=== PATIENT | female | born 1950 | race Caucasian/White ===

== ENCOUNTER 2018-09-09 15:17 | Outpatient (CLI) | payer MEDICARE, OTHER, SELFPAY ==
--- NOTE | 2018-09-09 15:21 | DI.MAMMO_ITS ---
SYMPTOMS/DIAGNOSIS: SCREENING BILATERAL SCREENING MAMMOGRAM: Mammograms were interpreted according to the usual protocol including computer analysis with CAD system, tomosynthesis and C view imaging. Comparison is made with exams from 2010 through 2016. The breasts are composed of heterogeneously dense fibroglandular tissue, breast density category C. No suspicious masses or suspicious microcalcifications are seen. There has been no significant change. IMPRESSION: Category 1C, negative mammogram. Yearly screening mammography is recommended. [facility] ASSESSMENT OF FINDINGS: Negative. Category 1. Patient will receive a letter notifying them of these results. Bi-RADS category C. The breasts are heterogeneously dense, which may obscure small masses.
== END 2018-09-09 15:37 ==
PROVIDERS: PCP Family Medicine; Visit Provider Family Medicine
DX: Z12.31 Encounter for screening mammogram for malignant neoplasm of breast (principal)
CPT/HCPCS: 77063; 77067

== ENCOUNTER 2019-09-13 03:06 | Outpatient (CLI) | payer MEDICARE, OTHER, SELFPAY ==
[2019-09-13 10:40] LABS: HCT 40.9 % (36.0-46.0); Mean Corp. HGB Concentration 31.8 g/dL (32.0-36.0); Mean Corpuscular Hemoglobin 30.1 pg (27.0-33.0); Mean Corpuscular Volume 94.7 fL (80-95); Mean Platelet Volume 11.1 fL (8.0-11.0); Platelet Count 219 x1000/uL (130-400); RBC 4.32 m/cumm (4.00-5.20); RBC Distribution Width 13.4 % (11.7-14.6); White Blood Cell Count 4.77 k/cumm (4.4-10.8)
[2019-09-13 10:57] LABS: Calculated LDL 246 mg/dL; Cholesterol 337 mg/dL (<200); Ferritin 395 ng/mL (8-252); HDL Cholesterol 69 mg/dL (40-60); Triglyceride 114 mg/dL (<150)
== END 2019-09-13 03:26 ==
PROVIDERS: PCP Family Medicine; Visit Provider Family Medicine
DX: E11.9 Type 2 diabetes mellitus without complications (principal); E78.5 Hyperlipidemia, unspecified; D12.6 Benign neoplasm of colon, unspecified; J45.909 Unspecified asthma, uncomplicated; Z83.49 Family history of other endocrine, nutritional and metabolic diseases
CPT/HCPCS: 36415; 80061; 85027; 82728; 83036

== ENCOUNTER 2019-09-20 08:08 | Outpatient (CLI) | payer MEDICARE, SELFPAY ==
[2019-09-23 22:59] LABS: Result Summary NEGATIVE; Specimen WB Whole Blood
== END 2019-09-20 08:28 ==
PROVIDERS: PCP Family Medicine; Visit Provider Family Medicine
DX: D75.1 Secondary polycythemia (principal); R79.0 Abnormal level of blood mineral; Z83.49 Family history of other endocrine, nutritional and metabolic diseases; R79.89 Other specified abnormal findings of blood chemistry
CPT/HCPCS: 36415; 81256

== ENCOUNTER 2019-10-18 01:24 | Outpatient (CLI) | payer MEDICARE, SELFPAY ==
--- NOTE | 2019-10-18 10:10 | DI.MAMMO_ITS ---
EXAM: MAMMO SCREENING CLINICAL HISTORY: SCREENING Z12.39 TECHNIQUE: Mammograms were interpreted according to the usual protocol including computer analysis w [employer] CAD system, tomosynthesis and C-view imaging. COMPARISON: 2009 through 2018 FINDINGS: The breasts are composed of heterogeneously dense fibroglandular densities, Breast Density category C . No suspicious masses or suspicious microcalcifications are seen. Benign calcifications are noted brooks aterally. No skin thickening or abnormal axillary lymph nodes are seen. There has been no significant change from prior exams. IMPRESSION: BI-RADS Cat 2 - Benign Findings. Yearly screening mammography is recommended. BREAST DENSITY: The mammogram demonstrates the patient's breast tissue is dense. Dense breast tissue is very common and is not abnormal but dense breast tissue can make it harder to find cancer on a ma mmogram. Also, dense breast tissue may increase breast cancer risk. This information about the result of the mammogram report was provided to the patient to raise their awareness. Use this report when y ou speak with the patient about their risks for breast cancer, which includes their family history. A t that time, you may recommend additional screening tests (Ultrasound or MRI) as they might be useful based on their risk. A negative radiographic report should not delay biopsy if a dominant or clinically suspicious mass is present. Up to ten percent of cancers are not identified on mammography. A negative report may reinforce clinical impression. Adenosis and dense breasts may obscure an underlying neoplasm. False positive reports average 6 to 10%.
== END 2019-10-18 01:44 ==
PROVIDERS: PCP Family Medicine; Visit Provider Family Medicine
DX: Z12.31 Encounter for screening mammogram for malignant neoplasm of breast (principal)
CPT/HCPCS: 77063; 77067

== ENCOUNTER 2019-10-18 12:22 | Outpatient (REF) | payer MEDICARE, SELFPAY ==
--- NOTE | 2019-10-18 11:37 | SKI_PTH ---
PATIENT: Silvia Nuñez LOC: [facility] U#:[id number] AGE/SX: 69/F ROOM: RE10/18/[address]: Bebeto Jorge DO : 1950 BED: DIS: 10/18/2019 SPEC #: [id number] RECD: 10/18/19 18:07 STATUS: MIKE REKaren #: [id number] LATHA: 10/18/19 11:[address]: Bebeto Jorge DEPT: Surgical Specimen RECD BY: Alma Ceja ENTERED: 10/18/19 18:07 SP TYPE: LEONARDA CISNEROS DR: Zoila Cao MD, DC Tissues: 1 - SKIN BIOPSY(SHAVE/PUNCH) Procedures: SKIN LEVEL 4 Comments: [id number]
== END 2019-10-18 12:42 ==
LOC: LBN 12:22
PROVIDERS: PCP Family Medicine; Visit Provider Otolaryngology Otolaryngology/Facial Plastic Surgery
DX: C44.311 Basal cell carcinoma of skin of nose (principal)
CPT/HCPCS: 88305

== ENCOUNTER → 2019-11-12 09:57 | Outpatient (BNVA) | payer MEDICARE, OTHER, SELFPAY | PROVIDERS: PCP Family Medicine; Referring Provider Family Medicine; Visit Provider Physical Therapy Assistant | DX: Z12.11 Encounter for screening for malignant neoplasm of colon (principal); Z86.010 Personal history of colon polyps ==

== ENCOUNTER 2019-11-22 10:21 | Day surgery (SDC) | payer MEDICARE, SELFPAY ==
--- NOTE | 2019-11-22 07:13 | W.COLOREPORT ---
Date of service: 11/22/19 Time of Service: 11:43 Colonoscopy Report Date of procedure: 11/22/19 Pre-op diagnosis general: Hx of colon polyps Post-op diagnosis procedure note: other (Diverticulosis, polyps and internal hemorrhoids) Procedure: Colonoscopy with polypectomy Surgeon: Shaylee Diaz Anesthesia proc note operative: other (General/ ASA 2 /Yue Ureña, ZE) Estimated blood loss (mL): 3 Pathology: other (Transverse polyp and sigmoid polyp) Complications: None Disposition: same day Indications: 69 y/o female with history of diverticulosis and asthma presents for colonoscopy screening pre-op. Her last screening was in 2015, which was remarkable for tubular adenomatous polyps. She reports family history of colon cancer in her maternal grandfather and paternal grandmother. She denies any changes in bowel habits including bloody or black tarry stools, diarrhea or constipation. Of note she reports intermittent LLQ discomfort. She relates this to her diverticulosis and has been increasing her daily fiber intake. Risks, benefits and complications have been reviewed. Complications include but are not limited to bleeding, pain, perforation, missed small lesion/polyp, sore throat, aspiration and adverse reaction to the medications. Questions were entertained and answered to their satisfaction and they wished to proceed. No guarantees were given or implied. Prep: Miralax/Dulcolax Procedure Start Time: 11:43 Procedure End Time: 12:07 Retraction Time: 15 minutes Findings: 2 small polyps Diverticulosis Grade 1 internal hemorrhoids Procedure Description: After informed consent was obtained the patient was taken to the procedure room and placed in a left decubitous position. Monitors were applied and a time out was done. The patients name, date of , procedure, allergies to medications and metal in their body was reviewed. The patient was then sedated. Once sedated and comfortable a rectal exam was done. External exam was normal. Internal exam revealed a normal sphincter tone and no palpable masses. The scope was then introduced and retro-flexed. No polyps and masses were identified on retro-flexion. There were Grade 1 internal hemorrhoids noted. The scope was then advanced to the cecum without difficulty. The ileocecal valve and appendiceal orifice were identified. The prep was adequate. The scope was then slowly retracted over 15 minutes back into the rectum. Polyps were removed with cold forceps in the transverse colon and sigmoid colon. There was moderate diverticulosis in the sigmoid colon.The scope was removed and the patient was woken up and taken back to Same day surgery in stable condition. The patient tolerated the procedure well and there were no immediate complications. Follow up: The patient should follow up in 5 years unless they develop changes in bowel habits or other new gastrointestinal complaints.
--- NOTE | 2019-11-22 07:14 | W.PM.DSUDISC ---
Discharge Plan Disposition Patient Disposition: HOME Condition: Good Discharge Details Reason For Visit: Hx of colon polyps Attending Provider: Shaylee Diaz Primary Care Provider: Zoila Cao Home Meds and New Rx's Prescriptions: Continued calcium citrate-vitamin D3 200 mg calcium -250 unit tablet 1 tab PO DAILY RF: 0 multivitamin [Daily Vitamin] 1 EACH tablet 1 tab PO DAILY RF: 0 mupirocin [Bactroban] 22 GM ointment 2 - 4 gm Topical BID Qty: 22 RF: 1 ascorbic acid (vitamin C) [Vitamin C] 500 MG tablet 500 mg PO DAILY RF: 0 magnesium citrate 100 MG tablet 0.5 tab PO DAILY RF: 0 cholecalciferol (vitamin D3) 1,000 unit capsule 1,000 unit PO DAILY RF: 0 fluticasone propion-salmeterol [Advair Diskus] 100-50 mcg/dose blister with device 1 puff Inhalation BID Qty: 3 RF: 11 Discontinued polyethylene glycol 3350 17 gram/dose powder 238 g PO ONCE Qty: 238 RF: 0 bisacodyl [Dulcolax (bisacodyl)] 5 mg tablet,delayed release (DR/EC) 5 mg PO ONCE Qty: 4 RF: 0 Discharge Instructions Instructions: Diverticulosis (DC), Hemorrhoids (DC) Additional Instructions: Findings: 2 small polyps diverticulosis Internal hemorrhoids Follow up: 5 years Please call if you develop: fevers >101.5 Nausea or Vomiting Abdominal pain that is not transient DAY SURGERY UNIT POST ENDOSCOPY INSTRUCTIONS 1. Because there will be medication in your system for the next 24 hours, you may feel a little sleepy. Your coordination will be affected. Therefore: a. Do not drive or operate dangerous equipment for 24 hours. b. Do not drink alcohol beverages for 24 hours (not even beer). c. Plan to go home and rest for the day. 2. Generally there are no restrictions on your activity after a day or so has gone by, but you may feel a bit fatigued for a few days. 3 After you arrive home you may have a light meal and return to a normal diet as you can tolerate it without feeling sick to your stomach. 4. After surgery, you may feel pain or discomfort. This should be only transient, but if it persists please contact your doctor. 5. If there are any questions regarding the findings of your procedure, please feel free to contact your doctor. 6. If you are unable to contact your doctor with a problem, contact the hospital at [phone]. 7. Continue all your regular medications unless directed otherwise. I understand the above instructions and have no questions. Signature of Patient or Responsible Adult Escort Date/Time Name of Responsible Adult Escort Signature of Nurse Date/Time Activity:: Activity as Tolerated Diet:: high fiber diet Discharge Orders Discharge Orders: Discharge Order (Routine); Ordered 11/22/19 Ordered By: Shaylee Diaz
[2019-11-22 10:40] VITALS: BP 113/73; PULSE 56; RESP 16; TEMP 36.5; O2SAT 98
[2019-11-22] MEDS: Lactated Ringers 1,000 ML 80 ML IV (11:10)
--- NOTE | 2019-11-22 11:59 | BOWEL_PTH ---
PATIENT: Silvia Nuñez LOC: [facility] U#:[id number] AGE/SX: 69/F ROOM: RE11/22/[address]: Shaylee Diaz MD : 1950 BED: DIS: 11/22/2019 SPEC #: [id number] RECD: 11/22/19 13:08 STATUS: MIKE RE #: [id number] LATHA: 11/22/19 11:[address]: Shaylee Diaz DEPT: Surgical Specimen RECD BY: Alma Ceja ENTERED: 11/22/19 13:09 SP TYPE: Bowel OTHR DR: Zoila Cao MD, DC Tissues: 1 - BIOPSY BOWEL 2 - BIOPSY BOWEL Procedures: GROSS AND MICRO LEVEL 4 Comments: [id number]
[2019-11-22 12:41] VITALS: BP 122/71; PULSE 57; RESP 16; TEMP 36.3; O2SAT 99
== END 2019-11-22 13:11 | disposition home or self-care (01) ==
LOC: SUR 10:21
PROVIDERS: PCP Family Medicine; Visit Provider Surgery
PROC: 0DJD8ZZ Inspection of Lower Intestinal Tract, Via Natural or Artificial Opening Endoscopic (ICD-10-PCS; CPT 45378; principal; 2019-11-22 12:30)
DX: Z12.11 Encounter for screening for malignant neoplasm of colon (principal); K63.5 Polyp of colon; K57.30 Diverticulosis of large intestine without perforation or abscess without bleeding; K64.0 First degree hemorrhoids; Z86.010 Personal history of colon polyps; Z80.0 Family history of malignant neoplasm of digestive organs
CPT/HCPCS: 45380; 88305; J2001; J2704

== ENCOUNTER 2020-02-04 08:56 | Outpatient (CLI) | payer MEDICARE, SELFPAY ==
[2020-02-05 23:42] LABS: COVID-19 RT-PCR Result NEGATIVE (Negative)
== END 2020-02-04 09:16 ==
PROVIDERS: PCP Family Medicine; Visit Provider Otolaryngology Otolaryngology/Facial Plastic Surgery
DX: Z03.818 Encounter for observation for suspected exposure to other biological agents ruled out (principal)
CPT/HCPCS: U0003

== ENCOUNTER 2020-02-07 06:11 | Day surgery (SDC) | payer MEDICARE, SELFPAY ==
[2020-02-07 06:06] VITALS: BP 90/64; PULSE 55; RESP 16; TEMP 36.8; O2SAT 98
[2020-02-07] MEDS: Lactated Ringers 1,000 ML 80 ML IV (06:51)
--- NOTE | 2020-02-07 07:35 | W.PM.DSUDISC ---
Discharge Plan Disposition Patient Disposition: HOME Condition: Stable Discharge Details Reason For Visit: BCC nose OR Attending Provider: Bebeto Jorge Primary Care Provider: Zoila Cao Home Meds and New Rx's Prescriptions: No Action calcium citrate-vitamin D3 200 mg calcium -250 unit tablet 1 tab PO DAILY RF: 0 multivitamin [Daily Vitamin] 1 EACH tablet 1 tab PO DAILY RF: 0 ascorbic acid (vitamin C) [Vitamin C] 500 MG tablet 500 mg PO DAILY RF: 0 magnesium citrate 100 MG tablet 0.5 tab PO DAILY RF: 0 cholecalciferol (vitamin D3) 1,000 unit capsule 1,000 unit PO DAILY RF: 0 fluticasone propion-salmeterol [Advair Diskus] 100-50 mcg/dose blister with device 1 puff Inhalation BID Qty: 3 RF: 11 montelukast 10 mg tablet 10 mg PO DAILY RF: 0 Discharge Instructions Additional Instructions: see sheet Activity:: Activity as Tolerated Remove Dressings/Wound Care:: 24 hours Shower/Bathe:: 24 hours Diet:: As Tolerated DS: Diagnosis Discharge Diagnosis (1) Skin cancer, basal cell: Status: Acute
--- NOTE | 2020-02-07 07:40 | ROE_ITS ---
Operative Note Operative Note DATE OF PROCEDURE: 02/07/20 PRE-OP DIAGNOSIS: BCC nose POST-OP DIAGNOSIS: same PROCEDURE: excisoni, frozen section and FTSG SURGEON: Bebeto Jorge ANESTHESIA: MAC PATHOLOGY: other (frozen, neg. margins) COMPLICATIONS: None Patient was transported to: PACU Patient's condition: stable Findings: frozen neg. after re- resection, initial + was 3:00 to 9:00 Procedure Description: Patient was brought back to the operative suite in stable condition, placed supine on operating table and given IV sedation. Timeout was taken to confirm preparation procedure. Patient was localized with 11 cc of 1% lidocaine with 1000 epinephrine into the right neck and right nasal sidewall. Patient was prepped and draped in normal fashion. 15 blade scalpel was used to excise the basal cell carcinoma of the right nasal sidewall, colored sutures were tagged for pathological analysis. We fashioned a full-thickness skin graft from the right neck. The right neck was incised with a 15 blade scalpel full- thickness skin was removed measuring 3.4 cm. Hemostasis controlled. Double layer closure performed with 4-0 Monocryl followed by 4 running nylon. The size of the primary nasal tumor was 1.2 cm after inital excision, re- resection of 3:00 to 9:00 due to positive margins enlarged defect to 1.9c cm. Final frozen section was performed, margins were negative. Patient was stable to PACU, there was no complications, antibiotic prescription provided as an outpatient, pressure dressing applied with sterile cotton ball and 3-0 silk suture. We will follow-up Friday of Friday for removal established patient
--- NOTE | 2020-02-07 08:09 | SKI_PTH ---
PATIENT: Silvia Nuñez LOC: [facility] U#:[id number] AGE/SX: 70/F ROOM: RE02/07/[address]: Bebeto Jorge DO : 1950 BED: DIS: 02/07/2020 SPEC #: [id number] RECD: 02/07/20 12:21 STATUS: MIKE REKaren #: [id number] LATHA: 02/07/20 08:[address]: Bebeto Jorge DEPT: Surgical Specimen RECD BY: Alma Ceja ENTERED: 02/07/20 12:22 SP TYPE: LEONARDA CISNEROS DR: Zoila Cao MD, DC Tissues: 1 - SKIN BIOPSY(SHAVE/PUNCH) 2 - SKIN BIOPSY(SHAVE/PUNCH) 3 - FROZEN SECTION EXAM Procedures: FROZEN SECTION EXTRA SKIN LEVEL 4 FROZEN SECTION EXAM Comments: [id number]
[2020-02-07] MEDS: Bacitracin 30 GM TUBE (08:35)
[2020-02-07 10:17] VITALS: BP 90/54; PULSE 52; RESP 14; TEMP 36.1; O2SAT 99
[2020-02-07 10:47] VITALS: BP 110/68; PULSE 59; RESP 16; TEMP 36.2; O2SAT 98
== END 2020-02-07 11:45 | disposition home or self-care (01) ==
PROVIDERS: PCP Family Medicine; Visit Provider Otolaryngology Otolaryngology/Facial Plastic Surgery
PROC: (CPT 15260; principal; 2020-02-07 07:30)
DX: C44.311 Basal cell carcinoma of skin of nose (principal)
CPT/HCPCS: 15260; 11642; 88305; 88331; 88332; J0690

== ENCOUNTER 2020-02-16 01:01 | Outpatient (CLI) | payer MEDICARE, SELFPAY ==
--- NOTE | 2020-02-16 09:27 | DI.RAD_ITS ---
EXAM: XR CHEST 2V PA LATERAL CLINICAL HISTORY: BASAL SKIN CANCER, C44.91 TECHNIQUE: 2D digital imaging was performed. COMPARISON: No exams were available for comparison FINDINGS: MEDIASTINUM: Normal. HEART: Normal. PULMONARY VASCULATURE: Normal. LUNGS: Clear. PLEURAL SPACE: No pleural effusion or pneumothorax. BONE:Normal. OTHER FINDINGS:Normal. IMPRESSION: No acute pulmonary findings. DATA REPOSITORY: RADIATION DOSE DELIVERED:
== END 2020-02-16 01:21 ==
PROVIDERS: PCP Family Medicine; Visit Provider Otolaryngology Otolaryngology/Facial Plastic Surgery
DX: C44.91 Basal cell carcinoma of skin, unspecified (principal)
CPT/HCPCS: 71046

== ENCOUNTER 2020-08-22 01:46 | Outpatient (CLI) | payer MEDICARE, SELFPAY ==
[2020-08-24 21:29] LABS: COVID-19 RT-PCR Result NEGATIVE (Negative)
== END 2020-08-22 02:06 ==
PROVIDERS: PCP Family Medicine; Visit Provider Family Medicine
DX: Z20.828 Contact with and (suspected) exposure to other viral communicable diseases (principal)
CPT/HCPCS: U0003

== ENCOUNTER 2020-09-15 00:51 | Outpatient (CLI) | payer MEDICARE, SELFPAY ==
[2020-09-15 13:03] LABS: HCT 41.9 % (36.0-46.0); HGB 13.7 g/dL (11.2-15.7); MCH 30.8 pg (27.0-33.0); MCHC 32.7 % (32.0-36.0); MCV 94.2 fL (80-95); MPV 11.6 fL (8.0-11.0); Platelet Count 240 10^3/uL (130-400); RBC 4.45 10^6/uL (3.93-5.22); RDW-SD 45.1 fL; WBC 5.14 10^3/uL (4.4-10.8)
[2020-09-15 13:33] LABS: Iron 105 ug/dL (50-170)
[2020-09-15 13:36] LABS: Hemoglobin A1C 5.6 % (<5.7)
[2020-09-15 13:46] LABS: Ferritin 424 ng/mL (8-252); TSH (W/Ref FT4) 2.15 uIU/mL (0.36-3.74)
== END 2020-09-15 01:11 ==
PROVIDERS: PCP Family Medicine; Visit Provider Family Medicine
DX: E11.9 Type 2 diabetes mellitus without complications (principal); E78.5 Hyperlipidemia, unspecified; R05 Cough; Z83.49 Family history of other endocrine, nutritional and metabolic diseases
CPT/HCPCS: 36415; 85027; 82728; 83036; 83540; 84443

== ENCOUNTER 2021-10-25 00:58 | Outpatient (CLI) | payer MEDICARE, SELFPAY ==
--- NOTE | 2021-10-25 12:24 | DI.MAMMO_ITS ---
Exam(s) MAMMO SCREENING EXAM: MAMMO SCREENING CLINICAL HISTORY: screening.z12.39 TECHNIQUE: Bilateral full field digital CC and MLO mammographic images were obtained with 3D tomosyn thesis and utilizing computer aided detection (CAD). COMPARISON: Available for comparison. FINDINGS: Masses/Architectural Distortion: None seen. Microcalcifications: No suspicious pleomorphic-type are seen. Skin Thickening/Nipple Retraction: None. IMPRESSION: 1. No significant interval change with no specific features of malignancy noted. 2. Unless there is more urgent need, screening mammography is recommended, as per [employer] guidelines. BI-RADS Category 1 - Negative Breast Density - Category C - Heterogeneously dense Breast density category C or D implies that the patient has dense breast tissue. Dense breast tissue is very common and is not abnormal but dense breast tissue can make it harder to find cancer on a ma mmogram. Also, dense breast tissue may increase their breast cancer risk. This information about the result of the mammogram report was provided to the patient to raise their awareness. Use this report when you speak with the patient about their risks for breast cancer, which includes their family hist ory. At that time, you may recommend for more screening tests (Ultrasound or MRI) as they might be us eful based on their risk. A negative radiographic report should not delay biopsy if a dominant or clinically suspicious mass is present. Up to ten percent of cancers are not identified on mammography. A negative report may reinforce clinical impression. Adenosis and dense breasts may obscure an underlying neoplasm. False positive reports average 6 to 10%. Patient will receive a letter notifying them of these results.
== END 2021-10-25 01:18 ==
PROVIDERS: PCP Family Medicine; Visit Provider Family Medicine
DX: Z12.31 Encounter for screening mammogram for malignant neoplasm of breast (principal); R92.8 Other abnormal and inconclusive findings on diagnostic imaging of breast
CPT/HCPCS: 77063; 77067

== ENCOUNTER → 2023-11-11 01:10 | Outpatient (CLI) | payer MEDICARE, SELFPAY ==
--- NOTE | 2023-11-11 06:30 | DI.MAMMO_ITS ---
Exam(s) MAMMO SCREENING EXAM: MAMMO SCREENING CLINICAL HISTORY: screening,z12.39 TECHNIQUE: Bilateral full field digital CC and MLO mammographic images were obtained with 3D tomosyn thesis and utilizing computer aided detection (CAD). COMPARISON: Available for comparison. FINDINGS: Masses/Architectural Distortion: None seen. Microcalcifications: No suspicious pleomorphic-type are seen. There are calcifications seen in the up per outer quadrant of the left breast there are linear. There is slightly increased in number since the prior examination but show no pleomorphism at this time. Skin Thickening/Nipple Retraction: None. IMPRESSION: 1. Slight increase in number of a few calcifications in the left breast. 2. A six-month follow-up left mammogram is recommended for re-evaluation. BI-RADS Category 3 - 6 month - Probably Benign Finding: Recommend follow-up imaging in 6 months Breast Density - Category C - Heterogeneously dense Breast density category C or D implies that the patient has dense breast tissue. Dense breast tissue is very common and is not abnormal but dense breast tissue can make it harder to find cancer on a ma mmogram. Also, dense breast tissue may increase their breast cancer risk. This information about the result of the mammogram report was provided to the patient to raise their awareness. Use this report when you speak with the patient about their risks for breast cancer, which includes their family hist ory. At that time, you may recommend for more screening tests (Ultrasound or MRI) as they might be us eful based on their risk. A negative radiographic report should not delay biopsy if a dominant or clinically suspicious mass is present. Up to ten percent of cancers are not identified on mammography. A negative report may reinforce clinical impression. Adenosis and dense breasts may obscure an underlying neoplasm. False positive reports average 6 to 10%. Patient will receive a letter notifying them of these results.
== END ==
PROVIDERS: PCP Family Medicine; Visit Provider Family Medicine
DX: Z12.31 Encounter for screening mammogram for malignant neoplasm of breast (principal)
CPT/HCPCS: 77063; 77067

== ENCOUNTER 2024-05-12 00:49 | Outpatient (CLI) | payer MEDICARE, SELFPAY ==
--- NOTE | 2024-05-12 07:45 | DI.MAMMO_ITS ---
Exam(s) MAMMO DIAGNOSTIC UNI EXAM: MAMMO DIAGNOSTIC UNI CLINICAL HISTORY: 6 month follow up,r92.8,z09,increase lt calcifications,. TECHNIQUE: Craniocaudal and mediolateral oblique Full Field Digital Mammography views of the left br east with Computer Aided Diagnosis followed by Tomosynthesis. COMPARISON: Comparison is made with prior examinations. FINDINGS: Mammography/Tomosynthesis: Masses/Architectural Distortion: None seen. Microcalcifictions: No suspicious pleomorphic-type are seen. There is stable calcifications in the up per outer quadrant of the left breast. Skin Thickening/Nipple Retraction: None. IMPRESSION: 1. No evidence of malignancy is noted. 2. Unless there is more urgent need, follow-up screening mammography is recommended, as per [employer] guidelines. 3. The findings were discussed with the patient on the date of the examination. BI-RADS Category 2 - Benign Findings Breast Density - Category C - Heterogeneously dense Breast density Category C or D implies that the patient has dense breast tissue. Dense breast tissue can make it harder to find cancer on a mammogram. Dense breast tissue is also associated with an incr eased risk of breast cancer. This information about the result of the mammogram report was provided to the patient to raise their awareness. Use this report when you speak with the patient about their risks for breast cancer, which includes their family history. At that time, you may recommend additional screening tests (Ultrasoun d or MRI) as these tests may add significant information. A negative radiographic report should not delay biopsy if a dominant or clinically suspicious mass is present. Up to ten percent of cancers are not identified on mammography. A negative report may reinforce clinical impression. Adenosis and dense breasts may obscure an underlying neoplasm. False positive reports average 6 to 10%. Patient will receive a letter notifying them of these results.
== END 2024-05-12 01:09 ==
LOC: DI 00:49
PROVIDERS: PCP Family Medicine; Visit Provider Family Medicine
DX: Z09 Encounter for follow-up examination after completed treatment for conditions other than malignant neoplasm (principal); R92.8 Other abnormal and inconclusive findings on diagnostic imaging of breast
CPT/HCPCS: 77061; 77065; G0279

== ENCOUNTER 2024-12-15 00:50 | Outpatient (CLI) | payer MEDICARE, SELFPAY ==
--- NOTE | 2024-12-15 07:00 | DI.MAMMO_ITS ---
Exam(s) MAMMO SCREENING EXAM: MAMMO SCREENING CLINICAL HISTORY: screening,z12.39 TECHNIQUE: Bilateral full field digital CC and MLO mammographic images were obtained with 3D tomosyn thesis and utilizing computer aided detection (CAD). COMPARISON: Available for comparison. FINDINGS: Masses/Architectural Distortion: No suspicious masses or areas of architectural distortion are presen t. Microcalcifications: No suspicious pleomorphic-type are seen. Stable calcifications are seen in the l eft breast. Skin Thickening/Nipple Retraction: None. IMPRESSION: 1. No significant interval change with no specific features of malignancy noted. 2. Unless there is more urgent need, screening mammography is recommended, as per [employer] guidelines. BI-RADS Category 2 - Benign Findings Breast Density - Category C - Heterogeneously dense Breast density category C or D implies that the patient has dense breast tissue. Dense breast tissue is very common and is not abnormal but dense breast tissue can make it harder to find cancer on a ma mmogram. Also, dense breast tissue may increase their breast cancer risk. This information about the result of the mammogram report was provided to the patient to raise their awareness. Use this report when you speak with the patient about their risks for breast cancer, which includes their family hist ory. At that time, you may recommend for more screening tests (Ultrasound or MRI) as they might be us eful based on their risk. A negative radiographic report should not delay biopsy if a dominant or clinically suspicious mass is present. Up to ten percent of cancers are not identified on mammography. A negative report may reinforce clinical impression. Adenosis and dense breasts may obscure an underlying neoplasm. False positive reports average 6 to 10%. Patient will receive a letter notifying them of these results.
== END 2024-12-15 01:10 ==
PROVIDERS: PCP Family Medicine; Visit Provider Family Medicine
DX: Z12.31 Encounter for screening mammogram for malignant neoplasm of breast (principal); R92.333 Mammographic heterogeneous density, bilateral breasts; D24.2 Benign neoplasm of left breast
CPT/HCPCS: 77063; 77067

== ENCOUNTER → 2025-02-10 10:36 | Outpatient (BNVA) | payer MEDICARE, SELFPAY | PROVIDERS: PCP Family Medicine; Referring Provider Family Medicine; Visit Provider Physical Therapy Assistant | DX: Z12.11 Encounter for screening for malignant neoplasm of colon (principal); Z86.0101 Personal history of adenomatous and serrated colon polyps; Z80.0 Family history of malignant neoplasm of digestive organs | CPT/HCPCS: S0285 ==

== ENCOUNTER 2025-02-25 06:12 | Day surgery (SDC) | payer MEDICARE, SELFPAY ==
--- NOTE | 2025-02-24 20:16 | W.PM.DSUDISC ---
Date of service: 02/25/25 Discharge Plan Disposition Patient Disposition: Home Condition: Good Discharge Details Reason For Visit: screening colonoscopy Attending Provider: Kaveh Noel Primary Care Provider: Zoila Cao Home Meds and New Rx's Prescriptions: Continued calcium citrate-vitamin D3 200 mg calcium -250 unit tablet 1 tab PO DAILY magnesium citrate 125 mg capsule 125 mg PO DAILY Quercetin/Biomelain/Vit C PO DAILY Patient Comments: 250mg/25mg/625mg cholecalciferol (vitamin D3) 1,000 unit capsule 1,000 unit PO DAILY Discontinued bisacodyl [Dulcolax (bisacodyl)] 5 mg tablet,delayed release (DR/EC) 5 mg PO ONCE Qty: 4 0RF Rx Instructions: Take per colonoscopy instructions provided by ordering providers office polyethylene glycol 3350 17 gram/dose powder 17 g PO ONCE Qty: 238 0RF Rx Instructions: Take per colonoscopy instructions provided by ordering providers office Discharge Instructions Instructions: Colon polyps, Diverticulosis Additional Instructions: Silvia, it was a pleasure meeting you today, and I hope you feel great after the procedure. Things went very smoothly. Your prep was excellent, and we could see everything fine. I did find, and removed 2 polyps today. Both of these were quite small, and I suspect they are nothing to worry about. To be safe, I will send these off to the pathologist. Polyps 2, different varieties, and we often times use that information to help guide future colonoscopies. Incidentally, you also have some diverticulosis. Diverticula are weak spots in the muscular layer of the colon wall that cause the inside lining, or mucosa, to pocket approach outwards. Hopefully these were never bother you. I will attach some information here about colon rectal polyps, as well as diverticulosis. If you have any questions at all, please do not hesitate to ask. 1. If tolerated, consume a soft, low fiber diet for 1-2 days. 2[address] Do not drive, drink alcohol, operate machinery, make critical decisions, or do activities that require coordination or balance for 24 hours. 3. Because air was put into your colon during the procedure, expelling air from your rectum (passing gas or farting) is normal. 4. You may not have a bowel movement for 1-3 days because of the colonoscopy prep. This is normal. 5. Go directly to the emergency room if you notice any of the following: Develop chills (warm to touch), or if you have a thermometer and your temperature is above 101 Difficulty breathing or difficultly swallowing Persistent vomiting Severe abdominal pain, other than gas cramps Severe chest pain Black, tarry stools Any bleeding ? exceeding one tablespoon 6. Call your physician if the site where your intravenous was started becomes red, swollen, painful, and warm to touch. 7. Your physician has reviewed your pre-procedure medications. Please continue to take those medications as previously ordered. You will be given specific information/education regarding any changes to your medications before leaving. Stand Alone Forms: Anesthesia Discharge InstKatie Amaro (DSU) Activity:: Activity as Tolerated Diet:: As Tolerated Discharge Orders Discharge Orders: Discharge Order (Routine); Ordered 02/24/25 Ordered By: Kaveh Noel DS: Diagnosis Discharge Diagnosis (1) Encounter for screening colonoscopy: Status: Acute Asessment and Plan: Follow-up on polypectomy results
--- NOTE | 2025-02-24 20:17 | COLE_ITS ---
Date of service: 02/25/25 Time of Service: 08:18 Colonoscopy Report Date of procedure: 02/25/25 Pre-op diagnosis general: screening colonoscopy Procedure: colonoscopy with polypectomy Surgeon: Kaveh Noel Anesthesia Type: General:No Airway Estimated blood loss (mL): 5 Pathology: other (0.25 cm flat polyp at 40 cm, 0.25 cm flat polyp at 60 cm) Complications: None Disposition: same day Indications: Silvia is a 75 year old woman with a history of adenomatous polyps. She needs her next screening colonoscopy Prep: Miralax/Dulcolax Procedure Start Time: 07:44 Procedure End Time: 08:00 Retraction Time: 9 Findings: 0.25 cm flat polyp at 40 cm, 0.25 cm flat polyp at 60 cm, sigmoid diverticulosis Procedure Description: After the induction of anesthesia, and with the patient in left lateral decubitus position, I began by performing an external anorectal exam.? Perineum and skin were normal, as was the anal verge.? This appeared normal.? Next, I performed a digital rectal exam.? I did not appreciate any abnormal findings.? Next, I advanced a colonoscope into the rectal vault.? I performed retroflexion.? This was normal.? Using insufflation and irrigation, I then advanced the colonoscope beyond the rectal folds and into the sigmoid colon before advancing towards the cecum.? A 0.25 cm flat polyp was encountered around 40 cm beyond the anal verge. This was removed with cold forceps polypectomy. There was minimal bleeding. I continued advancing the colonoscope. the scope was noted to be in the cecum by identification of the ileocecal valve and appendiceal orifice.? I then began withdrawing the colonoscope using repeated irrigation as necessary for full evaluation of the colonic mucosa. ?Around 60 cm from the anal verge was another polyp. This was also flattened about 0.25 cm. This was removed with cold forceps without any difficulty. There was minimal bleeding. There is sigmoid diverticulosis. Once the scope was withdrawn to the level of the rectum, great care was taken to examine portions of the rectal folds.? Finally, the scope was withdrawn and the patient was brought to the same-day surgery recovery unit as the anesthetic wore off. ?The findings and instructions were shared with the patient prior to discharge. Grand Tower Bowel Prep Grand Tower Bowel Prep Right Colon: 3 Left Colon: 3 Transverse Colon: 3 Total Score: 9
[2025-02-25 06:15] VITALS: BP 144/78; PULSE 63; RESP 18; TEMP 36.3; O2SAT 95
[2025-02-25] MEDS: Lactated Ringers 1,000 ML 80 ML IV (06:49)
--- NOTE | 2025-02-25 06:55 | W.ANESPRE ---
General Info Date of Service Date Performed: 02/25/25 Height: 5 ft 3.5 in Weight: 65.8 kg Body Mass Index (BMI): 25.2 Surgical Procedure: Operation Date: 02/25/25 07:35 Proposed Procedure Side Surgeon p Colonoscopy Kaveh Noel MD Actual Procedure Side Surgeon p Colonoscopy Kaveh Noel MD Pre-Op Diagnosis Post-Op Diagnosis screening colonoscopy Meds Allergies and Home Medications Allergies Allergy/AdvReac Type Severity Reaction Status Date / Time Sulfa (Sulfonamide Allergy Intermediate Hives Verified 02/25/25 06:40 Antibiotics) aspirin Allergy Mild Other (See Verified 02/25/25 06:40 Comment) Home Medication ?Medication ?Instructions ?Recorded cholecalciferol (vitamin D3) 25 1,000 unit PO DAILY 09/03/18 mcg (1,000 unit) capsule calcium 200 mg (as 1 tab PO DAILY 09/07/19 citrate)-vitamin D3 6.25 mcg (250 unit) tablet Quercetin/Biomelain/Vit C PO DAILY 10/08/22 magnesium citrate 125 mg capsule 125 mg PO DAILY 10/08/22 Current Visit Medications: Current Medications Generic Name Dose Route Start Last Admin Trade Name Freq PRN Reason Stop Dose Admin Ringer's Solution 1,000 mls @ 80 mls/hr 02/25/25 06:00 02/25/25 06:49 IV 02/25/25 23:59 80 mls/hr INFUSION TU Administration IV Miscellaneous Supplies 1 each 02/25/25 06:00 Iv Access IV 02/25/25 23:59 DIRECTED TU Ondansetron HCl 4 mg 02/24/25 20:19 Ondansetron 4 Mg/2 Ml Vial IVP 03/26/25 20:18 Q4H PRN PRN Nausea / Vomiting Sodium Chloride 0 ml 02/25/25 06:00 Normal Saline Flush 10 Ml Syr IV 02/25/25 23:59 PRN PRN Sodium Chloride 0 ml 02/25/25 06:00 Normal Saline 10 Ml Vial IJ 02/25/25 23:59 DIRECTED PRN Sterile Water 0 ml 02/25/25 06:00 Water,Injection,Sterile 10 Ml Vial IJ 02/25/25 23:59 DIRECTED PRN PFSH Active Problems Active Problems: Problem Status Onset Code Encounter for screening colonoscopy Acute Z12.11 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 Jorge Basal cell carcinoma of right nasal sidewall (~02/07/20) [facility] Deviated nasal septum Chronic cough History of one miscarriage History of cough PCP aware, suggested pt. see Dr. Jorge Skin cancer, basal cell Dysphonia Uterine leiomyoma 08/07/[address] 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 Depressive disorder External nasal lesion (07/11/16) S/P DERM Family history of hemochromatosis (06/29/15) Palpitations (06/06/14) TUBULAR ADENOMAS (~2008) Hyperplastic polyp of intestine (~2008) Hypercholesterolemia Surgical History Surgical History Hx of biopsy skin lesion on nose Hx of colonoscopy (~11/22/19) Tobacco Smoking/Tobacco Use Status: Former Tobacco Use Passive smoking exposure: Yes Second hand exposure: Yes Alcohol Alcohol Intake: current Alcohol intake frequency: holidays/special occasions only Alcohol type: beer and wine Substance Use Substance use: Never Substance use type: does not use Vital Signs and Lab Results Vital Signs Most Recent Vital Signs in EMR: Most Recent Vital Signs Temp Pulse Resp BP Pulse Ox 36.3 C L 63 18 144/78 H 95 02/25/25 06:15 02/25/25 06:15 02/25/25 06:15 02/25/25 06:15 02/25/25 06:15 Imaging and Studies Imaging and Studies Study information below may be from another EMR and interpreted by another provider. Please see original notes in EMR for more complete details. Pulmonary Function Summary: Pulmonary Function Test PATIENT NAME: SAMEERA TOLLIVER UNIT #: [id number] ADMITTING PROVIDER: CLAUDIA PAPPAS MD PRIMARY CARE PROVIDER: ZOILA CAO MD, DC DATE OF ADMIT: 06/07/16 : 1950 DATE OF SERVICE: June 07, 2016 PRIMARY CARE PROVIDER: Zoila Cao M.D. INTERPRETATION OF STUDY: Spirometry shows mild obstructive airways disease with some but not significant bronchodilator response. LUNG VOLUMES: Show no evidence of restriction. DIFFUSION CAPACITY: Normal. AIRWAYS RESISTANCE: Normal. IMPRESSION: Mild obstructive airways disease with some but not significant bronchodilator response. Clinical correlation recommended. cc: Zoila Cao M.D. VJ/ct D/T: 06/10 document embedded image document embedded image Dictated by: CLAUDIA PAPPAS MD Dict Date: 06/10/16 Dict Time: 917 <Electronically signed by CLAUDIA PAPPAS MD> Date: 06/14/16 Time: 1000 Anesthesia Assessment and Plan Anesthesia History Personal History: PONV and Other Family History: No Family History of Anesthesia Complications Exercise Tolerance Exercise Tolerance: Metabolic Equivalents>4 Pertinent Negatives Pertinent Negatives: No Symptoms of GERD (Some symptoms last night, none today) and No History of CVA/TIA Cardiac & Pulmonary Exam Cardiac Exam: Normal S1/S2 Heart Sounds Pulmonary Exam: Clear Bilateral Breath Sounds Implantable Cardiac Device Does patient have a Pacemaker or an ICD?: No Airway Exam Known Difficult Airway: No Mallampati Class: 2 Mouth Opening: Normal (> 3cm) Thyromental Distance: Greater than 3 cm Neck Range of Motion: Full ROM Neck Circumference: Normal Teeth Condition: Normal Dentition ASA Classification ASA Score: ASA 2 Emergency Case?: No NPO Status NPO Status: NPO Clears >2 hours, Solids >8 hours Anesthesia Plan Resuscitation Status: Full Code Anesthesia Technique: General Anesthesia Airway Planned: Natural Airway Monitors Used: Standard Monitors
[2025-02-25 07:37] VITALS: BMI 25.2
--- NOTE | 2025-02-25 07:49 | BOWEL_PTH ---
PATIENT: Silvia Nuñez LOC: [facility] U#:[id number] AGE/SX: 75/F ROOM: RE02/25/[address]: Kaveh Noel MD : 1950 BED: DIS: 02/25/2025 SPEC #: [id number] RECD: 02/25/25 12:48 STATUS: MIKE RE #: [id number] LATHA: 02/25/25 07:[address]: Kaveh Noel DEPT: Surgical Specimen RECD BY: Alma Ceja ENTERED: 02/25/25 12:50 SP TYPE: Bowel OTHR DR: Zoila Cao MD, DC Tissues: 1 - BIOPSY BOWEL 2 - BIOPSY BOWEL Procedures: GROSS AND MICRO LEVEL 4 Comments:
[2025-02-25 08:06] VITALS: BP 93/40; PULSE 72; RESP 16; TEMP 35.9; O2SAT 97
--- NOTE | 2025-02-25 08:30 | W.ANESPOSTOP ---
Postoperative Evaluation Date, Time and Location Date Performed: 02/25/25 Time Performed: 08:30 Patient Location: Day Surgery Unit Vital Signs Most Recent Imported Vital Signs: Most Recent Vital Signs Temp Pulse Resp BP Pulse Ox 35.9 C L 72 16 93/40 L 97 02/25/25 08:06 02/25/25 08:06 02/25/25 08:06 02/25/25 08:06 02/25/25 08:06 Pain Score Most Recent Pain Score: Most Recent Pain Score Pain Level 0 02/25/25 08:06 Assessment Mental Status: Awake (Alert & Oriented to Patient Baseline) Airway and Respiratory Function: Patent airway with normal (patient baseline) respiratory exam Cardiovascular Function: Hemodynamically Stable Hydration Status: Adequately Hydrated Nausea & Vomiting: No Nausea or Vomiting Pain: Pt. Denies Any Pain Peripheral Nerve Block: Patient did not receive a nerve block
[2025-02-25 08:35] VITALS: BP 115/63; PULSE 64; RESP 16; TEMP 35.8; O2SAT 94
== END 2025-02-25 08:43 | disposition home or self-care (01) ==
LOC: SUR 06:12
PROVIDERS: PCP Family Medicine; Visit Provider Surgery
PROC: 0DJD8ZZ Inspection of Lower Intestinal Tract, Via Natural or Artificial Opening Endoscopic (ICD-10-PCS; CPT 45378; principal; 2025-02-25 07:30)
DX: Z12.11 Encounter for screening for malignant neoplasm of colon (principal); D12.4 Benign neoplasm of descending colon
CPT/HCPCS: 45380; 88305; J2704